=== PATIENT | male | born 1990 | race Two or more races ===

== ENCOUNTER 2017-06-11 05:57 | Emergency (ER) | payer BC ==
[~2017-06-11] VITALS: Ht 177.8 cm; Wt 127.0 kg
[2017-06-11 07:23] VITALS: BP 134/85
[2017-06-11] MEDS ORDERED: LIDOCAINE 1% HCL (LOCAL ANESTH.) INJ 20ML MDV ONE (07:28)
[2017-06-11] MEDS ORDERED: LIDOCAINE 1% HCL (LOCAL ANESTH.) INJ 20ML MDV IJ ONE (07:30)
== END 2017-06-11 08:12 | disposition home or self-care (01) ==
LOC: ER 05:59
DX: L02.31 Cutaneous abscess of buttock (principal)
CPT/HCPCS: 10060; 99283; C1887; J2001

== ENCOUNTER 2020-02-10 12:46 | Emergency (ER) | payer BC, OTHER ==
[~2020-02-10] VITALS: Ht 177.8 cm; Wt 127.0 kg
[2020-02-10 13:06] VITALS: BP 126/79
== END 2020-02-10 19:33 | disposition left against medical advice (07) ==
LOC: ER 12:46
DX: R51 Headache (principal); Z53.21 Procedure and treatment not carried out due to patient leaving prior to being seen by health care provider